=== PATIENT | female | born 1975 | race Native Hawaiian/Other Pacific Islander ===

== ENCOUNTER 2021-02-26 13:52 | Outpatient (CLI) | payer OTHER | END 2021-02-26 21:23 | disposition home or self-care (01) | LOC: US 13:52 | PROVIDERS: ATTEND Specialist | DX: I73.9 Peripheral vascular disease, unspecified (principal); I63.9 Cerebral infarction, unspecified ==

== ENCOUNTER 2021-03-24 09:08 | Outpatient (CLI) | payer OTHER | END 2021-03-24 20:40 | disposition home or self-care (01) | LOC: US 09:08 | PROVIDERS: ATTEND Specialist | DX: I63.9 Cerebral infarction, unspecified (principal) ==